=== PATIENT | female | born 1960 ===

== ENCOUNTER 2018-08-19 04:29 | Outpatient (CLI) | payer MEDICAID | END 2018-08-19 23:59 | disposition home or self-care (01) | LOC: DIABETIC 04:29 | PROVIDERS: ATTEND Surgery | DX: E66.01 Morbid (severe) obesity due to excess calories (principal); E11.9 Type 2 diabetes mellitus without complications | CPT/HCPCS: 97802 ==

== ENCOUNTER 2018-09-09 03:05 | Outpatient (CLI) | payer MEDICAID | END 2018-09-09 23:59 | disposition home or self-care (01) | LOC: DIABETIC 03:05 | PROVIDERS: ATTEND Surgery | DX: E66.01 Morbid (severe) obesity due to excess calories (principal); E11.9 Type 2 diabetes mellitus without complications | CPT/HCPCS: 97802 ==

== ENCOUNTER 2018-10-14 00:31 | Outpatient (CLI) | payer MEDICAID | END 2018-10-14 23:59 | disposition home or self-care (01) | LOC: DIABETIC 00:31 | PROVIDERS: ATTEND Surgery | DX: E66.01 Morbid (severe) obesity due to excess calories (principal); E11.9 Type 2 diabetes mellitus without complications | CPT/HCPCS: 97802 ==

== ENCOUNTER 2019-06-11 02:29 | Outpatient (CLI) | payer MEDICAID | END 2019-06-11 23:59 | disposition home or self-care (01) | LOC: DIABETIC 02:29 | PROVIDERS: ATTEND Surgery | DX: E66.01 Morbid (severe) obesity due to excess calories (principal) | CPT/HCPCS: 97803 ==